=== PATIENT | female | born 2000 | race Caucasian/White ===

== ENCOUNTER 2024-04-13 15:27 | Emergency (ER) | payer BC, SELFPAY ==
[2024-04-13 15:50] VITALS: BP 135/84
--- NOTE | 2024-04-13 16:48 | ED.GENMED ---
History of Present Illness
<Hope Salmeron PA-C - Last Filed: 04/13/24 18:53>
General
Chief Complaint: Musculo-Skeletal Complaint
Source: patient
Exam Limitations: none
Time Seen by Provider: 04/13/24 16:07
Nursing documentation reviewed up to this point in time: agreed with
History of Present Illness
History of Present Illness:
Patient is a 23-year-old female presenting the emergency department for evaluation of left foot injury. Patient states that last night she was playing indoor basketball when she jumped up and came down landing on her foot awkwardly. She also had
the 'wind knocked out of her '. Patient states she did not invert her ankle or fall to the ground. However�she has had a lot of pain in her left foot near great toe since. She described significant pain with weightbearing. No numbness/tingling
in left foot. No ankle pain or knee pain. No other injury sustained.
Review of Systems
<Hope Salmeron PA-C - Last Filed: 04/13/24 18:53>
Review of Systems
Allergies reviewed?: Yes
All Other Systems: ROS reviewed and negative except as documented in HPI and ROS
Phy Exam
<Hope Salmeron PA-C - Last Filed: 04/13/24 18:53>
Physical Exam
Physical Exam:
Vitals: Patient's vital signs are stable. Afebrile
General: Patient is well appearing, no acute distress
Skin: Warm and dry, no rashes or lesions
Head: Normocephalic, atraumatic
Throat: Protecting airway
Neck: Normal ROM, no cervical spine tenderness
Cardiac: Regular rate
Pulm: No apparent respiratory distress
Abdomen: Nondistended
Extremities: Minimal tenderness to left foot near first MTP with small area of ecchymosis. Mild edema around first MTP. No tenderness at base of left fifth metatarsal, medial/lateral malleolus, hindfoot, midfoot. No tenderness of head of left
fibula. No calcaneal tenderness. Achilles intact. Full range of motion of left ankle including plantar/dorsiflexion without pain. Capillary refill within normal limits. Palpable DP pulses bilaterally. Sensation fully intact.
Neuro: Grossly intact
Psychiatric: Normal affect.
Course
<Hope Salmeron PA-C - Last Filed: 04/13/24 18:53>
Orders/Labs/Results
Orders:
Orders
04/13/24 15:29
CR Foot - Left Min 3 Views Urgent
Comment:
Reason For Exam: injury
04/13/24 17:10
Ortho Boot Left- Treatment ONCE
Short or tall?: Short
Vital Signs
Initial and Last Documented VS:
Initial Vital Signs
Temp Pulse Resp BP Pulse Ox
97.9 F 68 16 135/84 99
04/13/24 15:50 04/13/24 15:50 04/13/24 15:50 04/13/24 15:50 04/13/24 15:50
Last Documented Vital Signs
Temp Pulse Resp BP Pulse Ox
97.9 F 68 16 135/84 99
04/13/24 15:50 04/13/24 15:50 04/13/24 15:50 04/13/24 15:50 04/13/24 15:50
<John Holly MD - Last Filed: 04/13/24 17:25>
Orders/Labs/Results
Orders:
Orders
04/13/24 15:29
CR Foot - Left Min 3 Views Urgent
Comment:
Reason For Exam: injury
04/13/24 17:10
Ortho Boot Left- Treatment ONCE
Short or tall?: Short
Vital Signs
Initial and Last Documented VS:
Initial Vital Signs
Temp Pulse Resp BP Pulse Ox
97.9 F 68 16 135/84 99
04/13/24 15:50 04/13/24 15:50 04/13/24 15:50 04/13/24 15:50 04/13/24 15:50
Last Documented Vital Signs
Temp Pulse Resp BP Pulse Ox
97.9 F 68 16 135/84 99
04/13/24 15:50 04/13/24 15:50 04/13/24 15:50 04/13/24 15:50 04/13/24 15:50
<Hope Salmeron PA-C - Last Filed: 04/13/24 18:53>
MDM/Problems Addressed
Differential Diagnosis Includes:
Not limited to: Foot sprain, foot fracture, etc
MDM/Problems Addressed:
23-year-old female presenting with left foot injury while playing basketball last night. Not an inversion injury. Some difficulty weightbearing due to pain. No numbness/tingling. No other injury sustained. Vital stable. Exam as above. X-ray
of left foot obtained without any evidence of acute fracture. Overall impression is likely foot sprain. Will give short Ortho boot as patient is having difficulty weightbearing. 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
persist/worsen. Recommended rest, ice, compression, elevation. Weight-bear as tolerated. Return precautions discussed. Patient stable for discharge
Chronic conditions affecting care:
N/A
Acute Exacerbation and/or Progression of Chronic Illness:
N/A
<Hope Salmeron PA-C - Last Filed: 04/13/24 18:53>
*Radiology
Radiology exam reviewed: preliminary read by ED provider (X-ray reviewed by wy-no acute fracture) and radiology read reviewed
*Pulse Oximetry
Patient hypoxic: no
*EKG
Interpreted by ED Provider?: NA
*Chief Merchandising Officer Interpretation
Rate: Chief Merchandising Officer- N/A
*Critical Care Note
Total Time (30-74mins, 75-104mins- exclusive of procedures): Not Applicable
ED Attending Note
<Hope Salmeron PA-C - Last Filed: 04/13/24 18:53>
-
Portions of this chart may have been created with voice recognition software.� Occasional wrong word or��sound alike� substitutions may have occurred due to the inherent limitations of voice recognition software.
<John Holly MD - Last Filed: 04/13/24 17:25>
ED Attending Note
Patient seen and examined by attending physician: Yes
ED Attending Note:
I have seen and evaluated the patient with a [id number] encounter. I have spoken to the advance practicer provider and involved in the medical history, the physical exam, medical decision making.
Evaluation and management service: agree unless noted differently below.
Results interpretation: agree unless noted differently below.
Focused HPI: 23-year-old female presents for evaluation of foot injury. Patient was playing basketball yesterday and landed on her left foot awkwardly and has had pain and difficulty weightbearing since. She denies any pain in the ankle or knee.
She denies any other injuries.
Physical exam: Awake alert no distress. Vital signs normal. She has medial deviation of the first toe with prominent MTP joint, swelling and tenderness area consistent with a bunion. She has no tenderness of the midfoot, fifth metatarsal, medial
or lateral malleolus. No tenderness of the knee. Strong DP pulse.
Medical Decision Makin-year-old female presents for evaluation of left foot injury, difficulty weightbearing. X-ray reviewed shows no acute fracture but she does have moderate hallux valgus deformity. Will place in walking boot refer to
Ortho/podiatry for outpatient follow-up. Spoke about [facility], all questions answered.
Discharge Plan
Departure
Patient Disposition: Home (Routine Discharge)
Date of Disposition: 04/13/24
Time of Disposition: 17:16
Patient with high blood pressure during this ER visit?: No
Condition: Good
Covid-19: Not Applicable
Discharge Problem:
Injury of foot, left
Instructions: Foot Sprain ED
Prescriptions:
No Action
No Current Medications
0
Referrals:
Brandon Jasso DPM [Active] -
Liz Ramos CRNP [Family Provider] -
Activity Restrictions/Additional Instructions:
RETURN TO THE EMERGENCY DEPARTMENT WITH ANY NUMBNESS/TINGLING IN LEFT FOOT, INTRACTABLE PAIN, WORSENING IN CURRENT SYMPTOMS, OR ANY OTHER CONCERNS
-As discussed�your x-ray performed in the emergency department showed no evidence of fracture of your left foot.
-You should continue to ice/elevate your left foot as often as possible. Weight-bear as tolerated with walking boot. Continue to take ibuprofen as needed for discomfort.
-Follow-up with orthopedics for further evaluation/management if symptoms persist/worsen
Monitor your symptoms closely return to the emergency department with any acute worse symptoms or any other concerns
Interventions
Interventions:
*Risk Screen - Suicide Last Done: 04/13/24 15:50
*General Assessment Last Done: 04/13/24 15:50
*Neglect/Abuse Screening Last Done: 04/13/24 15:50
*ED COVID-19 Vaccine History Last Done: 04/13/24 15:50
*Nursing Disposition Last Done: 04/13/24 17:44
Discharge Date and Time
Discharge Date/Time: 04/13/24 17:45
Print Language: [email or web address]
== END 2024-04-13 17:45 | disposition home or self-care (01) ==
LOC: EMR 15:27
PROVIDERS: EMERGENCY PHYSICIAN Emergency Medicine; FAMILY PHYSICIAN Family Medicine
DX: S90.32XA Contusion of left foot, initial encounter (principal); X58.XXXA Exposure to other specified factors, initial encounter; Y93.67 Activity, basketball; M20.12 Hallux valgus (acquired), left foot
CPT/HCPCS: 99283; 73630